=== PATIENT | male | born 1930 | race African-American/Black ===

== ENCOUNTER 2017-01-29 10:48 | Emergency (ER) | payer OTHER, MEDICARE ==
[~2017-01-29 10:48] MED LIST: ALBUTEROL17 GM INH; COUMADIN5 MG PO; FINASTERIDE5 MG PO; HYDROCODON-ACE1 EAC9 PO; KEFLEX500 M1 PO; LISINOPRIL-HCTZ1 T18 PO; LISINOPRIL-HCTZ1 T19 PO; LOVENOX80 MG/0.8 SUBQ; MEDROL PO; METFORMIN PO; NORVASC PO; PERCOCET5/325 PO; PREDNISONE PO
[2017-03-03] MEDS ORDERED: ZESTORETIC 10-1 EAC1 PO (15:55)
[2017-03-03] MEDS ORDERED: COUMADIN PO (15:55)
[2017-03-03] MEDS ORDERED: PATIENT'S PHARMACY (15:55)
== END 2017-01-29 11:29 | disposition home or self-care (01) ==
LOC: CED 10:48
DX: Z04.3 Encounter for examination and observation following other accident (principal); V49.00XA Driver injured in collision with unspecified motor vehicles in nontraffic accident, initial encounter; Z79.01 Long term (current) use of anticoagulants; Y92.410 Unspecified street and highway as the place of occurrence of the external cause
CPT/HCPCS: 99284

== ENCOUNTER → 2017-02-18 | Outpatient (CLI) | payer MEDICARE ==
[~2017-02-18] MED LIST changes: +COUMADIN PO; +PATIENT'S PHARMACY; +ZESTORETIC 10-1 EAC1 PO
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
== END | disposition home or self-care (01) ==
LOC: CRAD 11:03
DX: M54.5 Low back pain (principal); M41.9 Scoliosis, unspecified; M51.36 Other intervertebral disc degeneration, lumbar region; M47.896 Other spondylosis, lumbar region
CPT/HCPCS: 72100